=== PATIENT | male | born 1975 | race Caucasian/White ===

== ENCOUNTER 2022-12-19 11:18 | Outpatient (CLI) | payer BC, SELFPAY | END 2022-12-19 11:19 | disposition home or self-care (01) | PROVIDERS: PCP Family Medicine; Visit Provider Family Medicine | DX: R10.9 Unspecified abdominal pain (principal); N50.811 Right testicular pain; Z13.6 Encounter for screening for cardiovascular disorders | CPT/HCPCS: 80053; 80061; 85025 ==

== ENCOUNTER 2023-02-06 12:54 | Outpatient (CLI) | payer BC, SELFPAY ==
--- NOTE | 2023-02-06 13:00 | CRLHL7_ITS ---
For Patients: As a result of the Century Cures Act, medical imaging exams and procedure reports are released immediately into your electronic medical record. You may view this report before your referring provider. If you have questions, please contact your health care provider. INDICATION: RIGHT TESTICULAR PAIN COMPARISON: none TECHNIQUE: Hernandez scale imaging was performed of the scrotum. In addition color Doppler and spectral Doppler analysis was performed of the testes. FINDINGS: The testes demonstrate normal arterial and venous blood flow on color Doppler and spectral Doppler analysis. Bilateral testicular microlithiasis. The right testis measures 3.8 x 2.1 x 2.5 cm in size and the left testis measures 3.7 x 1.9 x 2.5 cm. Right epididymal head cyst measures 1.6 x 0.8 x 2.3 cm. Left epididymal head cyst measures 8 x 4 x 7 millimeters. There is no evidence of a hydrocele or varicocele. IMPRESSION: Bilateral epididymal head cysts measuring 2.3 cm on the right and 0.8 cm on the left. Bilateral testicular microlithiasis. No intratesticular mass. No torsion. Dictated by Gaurang Davidson MD @ 02/06/2023 2:56:50 PM (Electronically Signed)
== END 2023-02-06 12:55 | disposition home or self-care (01) ==
LOC: US 12:55
PROVIDERS: PCP Family Medicine; Visit Provider Family Medicine
DX: N50.811 Right testicular pain (principal); L72.0 Epidermal cyst
CPT/HCPCS: 76870; 93976

== ENCOUNTER 2023-07-12 12:59 | Outpatient (CLI) | payer BC, SELFPAY ==
--- NOTE | 2023-07-12 13:00 | MR_ITS ---
[facility] [address] [facility] [address] Phone:?[phone] Fax:?[phone] Referring Physician Information: GRECIA Freeman [address] [facility] [address] Phone:?[phone] Fax:?[phone] Patient:Alysa Reynoso D.O.B:?1975 Sex:?Male Phone:?[phone] [facility] MRN:?[id number] Exam Date:?07/12/2023 EXAM: MRI of the RIGHT KNEE, without contrast CLINICAL HISTORY: Ongoing right knee pain. Patellar tendinitis of the right knee. Evaluate for patellar tendon tear. Evaluate for patellofemoral pathology. COMPARISONS: Plain radiographs 06/23/2023. TECHNICAL: MR sequences of the right knee: sagittals: PD, T2 FS coronals: PD, STIR axials: T1, PD FS CONTRAST: None SEDATION: None FINDINGS: Bones: No fracture, bone marrow contusion, or other suspicious bone marrow signal abnormality. 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 Retinacula: The medial and lateral retinacula are intact. Fat pads: The infrapatellar, quadriceps, and prefemoral fat pads are unremarkable. Knee joint: Effusion: Small right knee joint effusion. Popliteal cyst: None. Intra-articular bodies: None. Posteromedial corner: The semimembranosus and pes anserine tendons are intact. Medial compartment: Medial meniscus: Intact. Cartilage: Intact. Lateral compartment: Lateral meniscus: Intact. Cartilage: Intact. Ligaments: Anterior cruciate ligament: Intact. Posterior cruciate ligament: Intact. Medial collateral ligament: Intact. Posterior oblique ligament: Intact. Fibular collateral ligament: Intact. Posterolateral corner: The distal biceps femoris tendon, iliotibial band, popliteus tendon, popliteus muscle, popliteofibular ligament, and arcuate ligament are intact. Extensor mechanism: Patellar tendon: There is marked tendinopathy/ill-defined low-grade partial tearing of the distal portion of the quadriceps tendon at the tibial attachment with adjacent tibial bone marrow edema and moderate deep infrapatellar bursitis. There is mild tendinopathy of the proximal and mid portions of the patellar tendon. Quadriceps tendon: Intact. IMPRESSION: 1. Marked tendinopathy/ill-defined low-grade partial tearing of the distal portion of the quadriceps tendon at the tibial attachment with adjacent tibial bone marrow edema and moderate deep infrapatellar bursitis. Additionally, mild tendinopathy of the proximal and mid portions of the patellar tendon. 2. 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 3. Small right knee joint effusion. 4. No ligamentous or meniscal pathology of the right knee. Intact medial and lateral compartment cartilage. RCB Electronically signed on 07/13/2023 9:17:00 AM by Cortez Sanders M.D.
== END 2023-07-12 13:00 | disposition home or self-care (01) ==
LOC: MRI 13:00
PROVIDERS: PCP Family Medicine; Visit Provider Physician Assistant Surgical
DX: M25.561 Pain in right knee (principal); S76.111A Strain of right quadriceps muscle, fascia and tendon, initial encounter; M25.461 Effusion, right knee; M22.41 Chondromalacia patellae, right knee; M76.51 Patellar tendinitis, right knee
CPT/HCPCS: 73721